=== PATIENT | male | born 1980 | race Two or more races ===

== ENCOUNTER 2020-05-30 23:07 | Emergency (ER) | payer MEDICARE, MEDICAID ==
[2020-05-30] MEDS ORDERED: LIDOCAINE 1%/EPINEPHRINE INJ 20 ML VIAL INJ ONE (23:53)
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
--- NOTE | 2020-05-31 02:30 | RADIOLOGY REPORT (SQ) ---
CT of the head: 05/31/2020 1:25 AM [employer] HISTORY: 39-year-old patient with fall, laceration, traumatic brain injury. COMPARISON: None available TECHNIQUE: Multiple axial contiguous images were obtained through the head without intravenous contrast administered. This exam was performed according to our departmental dose-optimization program, which includes automated exposure control, adjustment of the mA and/or KV according to the patient's size and/or use of iterative reconstruction technique. FINDINGS: The ventricles and cerebral sulci demonstrate mild prominence, consistent with cerebral atrophy. There are mild periventricular hypodensities, suggestive of periventricular white matter changes. The gibbons-white matter differentiation is within normal limits. There is some artifact seen at the right frontal lobe Both globes appear symmetric. The mastoid air cells appear clear. The visualized paranasal sinuses appear clear. The calvarium is intact. No extra-axial fluid collection is seen. No midline shift or mass effect is apparent. There are no findings to suggest acute intracranial hemorrhage. IMPRESSION: 1. No acute intracranial hemorrhage is seen. 2. Mild cerebral atrophy and periventricular white matter changes are seen.
[2020-05-31] MEDS ORDERED: LIDOCAINE 1%/EPINEPHRINE INJ 20 ML VIAL INJ ONE (08:15)
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
[2020-05-31 10:54] VITALS: BP 146/95
== END 2020-05-31 10:38 | disposition home or self-care (01) ==
LOC: ER 23:07
DX: S01.81XA Laceration without foreign body of other part of head, initial encounter (principal); W19.XXXA Unspecified fall, initial encounter; Z87.820 Personal history of traumatic brain injury
CPT/HCPCS: 99284; 70450; 12015; J3490